=== PATIENT | male | born 1935 | race Caucasian/White ===

== ENCOUNTER 2016-09-19 07:07 | Outpatient (CLI) | payer MEDICARE, OTHER ==
[~2016-09-19] VITALS: Ht 182.9 cm; Wt 82.0 kg
--- NOTE | ~2016-09-19 | CATH ---
Cardiac Diagnostic Report Demographics Patient Name JAH Ellis Gender Male Date of 1935 Age 81 year(s) Patient Number [id number] Date of Study 09/19/2016 Visit Number [id number] Room Number G6399 [place] [id number] Ht 182.88 cm Wt 82 kg Referring Deshawn Barrera Primary Physician Physician MAGALY Performing Edgardo aSnchez MD Secondary Physician Physician Diagnostic Edgardo Sanchez MD Assisting Physician Physician Interventional Physician [employer] Specialist Physician Findings and Conclusions Diagnostic Findings and Conclusion Nonobstructive CAD. Diagnostic Recommendations Medical therapy. Procedure Description The patient was brought to the diagnostic cardiac catheterization-EP laboratory in the fasting, non-sedated state. Informed consent was obtained in the written and verbal form after the risks and benefits were explained. The patient had no further questions and agreed to proceed. The planned puncture-incision site(s) were shaved and prepped with ChloraPrep and draped in the usual sterile manner. Conscious sedation, supplemental oxygen, and pain control medications were delivered by a registered nurse under physician guidance. Surface ECG rhythm, blood pressure measurement, and pulse oximetry were monitored throughout the procedure. Arterial access. The access site was infiltrated with lidocaine. The vessel was entered with the Seldinger technique. A sheath was advanced into the vessel and used for catheter placement. Selective left coronary angiography. A catheter was advanced into the left coronary vessel ostium under Fluoroscopic guidance. Contrast was injected by hand. Images were obtained in multiple projections. Selective right coronary angiography. A catheter was advanced into the right coronary vessel ostium under fluoroscopic guidance. Contrast was injected by hand. Images were obtained in multiple projections. Left heart catheterization. A catheter was advanced across the aortic valve to the left ventricle under fluoroscopic guidance. Resting hemodynamics were obtained. Arterial artery hemostasis was achieved. The patient was transferred to a regular nursing floor via cart accompanied by a nurse. The patient left the laboratory in stable condition. Diagnostic Cath Status: Elective Procedure Procedure Type Diagnostic procedure:Angiography:, Coronary Angios w/[facility] Indications: Abnormal Stress Test. The procedure was explained in detail to the patient. Risks, complications and alternative treatments were reviewed. Written consent was obtained. Medications Reviewed with Patient prior to Procedure. Angiographic Findings Dominance: Right Cardiac Arteries and Lesion Findings LMCA: Normal (0% Stenosis).Large, normal. LAD: Normal (0% Stenosis).Large proximal, mid-distal small. Diagonal 1 medium, okay. LCx: Normal (0% Stenosis).Large, nondominant, normal. RCA: Normal (0% Stenosis).Large dominant. PL medium, normal. PDA medium, normal. Procedure Data Procedure Date Date: 09/19/2016Start: 10:16 AMEnd: 10:38 AM Entry Locations - Retrograde Percutaneous access was performed through the Right Femoral artery (Primary location). A 6 Fr sheath was inserted. Hemostasis was successfully obtained using Perclose ProGlide ([employer]oj[employer]). Closure Comments: Deployed by RT. Adrienne. Procedure Medications Order and Administration + + +-------+------+ !Time !Medication !Dosage !Route ! + + +-------+------+ !09/19/2016 10:15 AM !Versed !1 mg !I.V. ! + + +-------+------+ !09/19/2016 10:17 AM !Fentanyl !25 mcg !I.V. ! + + +-------+------+ Devices Used - A6 Fr. BS JL 4 Diag. Catheterwas used for:Left coronary angiography. - A6 Fr. BS JR 4 Diag. Catheterwas used for:Right coronary angiography. - A6 Fr. BS Angled Pigtail Diag. Catheterwas used for:LV Pressures. Contrast Material - Isovue [id number] ml Fluoroscopy Time: Diagnostic: 3:24 minutes. Total: 3:24 minutes. Fluoroscopy Dose: Diagnostic: 755 mGy. Total: 755 mGy. Estimated Blood Loss: 3 ml. Medical History Performed Procedures and Imaging Results - Stress testing with SPECT MPIwas performed. Results were: Positive. Risk/Extent of ischemia was: Intermediate risk. Allergies - No known allergies. Risk Factors The patient risk factors include:hypertension, last creatinine: 1 mg/dl and creatinine clearance: 69.47 ml/min. Admission Data Admission Date: 09/19/2016 Admission Time: 07:07 AM Admit Source: Other Insurance Payors: Medicare. Admission Medications + +------+------+ + + + + !Medication !Dosage!Times !Last !Last !Administered !Comments ! ! ! !Per !Delivery !Delivery ! ! ! ! ! !Day !Date !Time ! ! ! + +------+------+ + + + + !Aspirin ! ! ! ! !Yes ! ! !(any) ! ! ! ! ! ! ! + +------+------+ + + + + !Beta ! ! ! ! !Yes ! ! !Azam ! ! ! ! ! ! ! !(any) ! ! ! ! ! ! ! + +------+------+ + + + + Clinical Evaluation Leading to Procedure - The patient's CAD presentation was assessed as: Unstable angina. 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 Anti-anginal medications were prescribed during the past two weeks. The medication is: Beta Blockers. Hemodynamics Condition: Rest O2 Consumption: Estimated: 232.80Heart Rate: 69 bpm Pressures (mmHg) +-----+ + !Site !Pressure ! +-----+ + !AO !143/73 (102) ! +-----+ + !AO !155/76 (109) ! +-----+ + !LV !152/3 ,13 ! +-----+ + !LV !141/3 ,15 ! +-----+ + !AO !147/76 (106) ! +-----+ + !LV !140/4 ,15 ! +-----+ + Valve Gradients and Areas + +---------+---------+---------+ +---------+ + !Valve !Peak !Mean !Area !Index !Flow !Source ! + +---------+---------+---------+ +---------+ + !Aortic !0 !0 ! ! ! ! ! + +---------+---------+---------+ +---------+ + !Aortic !0 !0 ! ! ! ! ! + +---------+---------+---------+ +---------+ + Shunts Oxygen Values O2 Capacity 161.84 O2 Consumption 232.8 Discharge Data Discharge Date: 09/19/2016 Hospital Status: Outpatient Signatures dtt: Daniel Reynoso (cardio) dtd: 09/19/16 [facility] Physician Self Edamirah
[~2016-09-19 07:07] MED LIST: ASPIRIN EC81 MG PO; GLUCOSAMINE S1000 M1 PO; LOPRESSOR25 MG PO
[2016-09-19 10:52] LABS: MAGNESIUM 1.8 mg/dL (1.8-2.6); POTASSIUM 3.3 mMol/L (3.7-5.1)
[2016-09-19] MEDS ORDERED: LOPRESSOR25 MG PO ×2 (14:01→14:03)
[2016-09-19] MEDS ORDERED: K-TAB 10MEQ10 MEQ PO (14:04)
[2016-09-19] MEDS ORDERED: MAG-OX-400(241400 MG PO (14:05)
== END 2016-09-19 14:30 | disposition disaster alternative care site (69) ==
LOC: GPCU 07:07 → GCAT 07:07
PROVIDERS: Internal Medicine Interventional Cardiology
DX: R07.89 Other chest pain (principal); I49.3 Ventricular premature depolarization; I20.0 Unstable angina; Z79.82 Long term (current) use of aspirin
CPT/HCPCS: C1760; J1644; J2250; J3010; J7030